=== PATIENT | male | born 1975 | race Two or more races ===

== ENCOUNTER 2019-12-08 16:40 | Emergency (ER) | payer SELFPAY ==
[~2019-12-08] VITALS: Ht 167.6 cm; Wt 93.0 kg
[~2019-12-08 16:40] MED LIST: CEPHALEXIN500 MG ORAL
[2019-12-08 16:47] VITALS: BP 119/83
--- NOTE | 2019-12-08 16:55 | NUR ---
ED Nurse Note: Patient walked in to ER for stitchies removal from forehead.
[2019-12-08 17:05] VITALS: BP 119/83
--- NOTE | 2019-12-08 17:07 | Emergency Room Report ---
History of Present Illness General Chief Complaint: Wound Recheck/Suture Removal Source: Patient Present Illness HPI 44-year-old male with no significant past medical history here requesting suture removal. Sutures were placed in 1 week ago at [email or web address]. Patient has avulsion laceration well. 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 Minimal Dermabond was applied. Patient to return in 4 to 5 days for removal of the sutures. Also need to take antibiotics. Patient denies any fever chills and pain is definitely at this time. Denies any fatigue, memory loss, generalized weakness. Denies blurry vision. Allergies: Coded Allergies: No Known Allergies (Unverified , 12/01/19) COVID-19 Screening Contact w/high risk pt: No Experienced COVID-19 symptoms?: No COVID-19 Testing performed WATER RESOURCE AGENT: No Patient History Past Medical History: see triage record Past Surgical History: none Pertinent Family History: none Immunizations: UTD Reviewed Nursing Documentation: PMH: Agreed; PSxH: Agreed Nursing Documentation-PMH Past Medical History: No Stated History Review of Systems All Other Systems: negative except mentioned in HPI Physical Exam Vital Signs Date Time Temp Pulse Resp B/P (MAP) Pulse Ox O2 Delivery O2 Flow Rate FiO2 12/08/19 16:47 97.3 82 17 119/83 (95) 99 Room Air Sp02 EP Interpretation: reviewed, normal General Appearance: well appearing, no apparent distress Head: normocephalic, other - Healing laceration on forehead ENT: hearing grossly normal, normal voice Neck: full range of motion, supple Respiratory: no respiratory distress, speaking full sentences Cardiovascular #1: regular rate, rhythm, no edema Gastrointestinal: normal inspection, non tender Musculoskeletal: gait/station normal, swelling Neurologic: alert, oriented, oriented x3 Psychiatric: normal inspection, judgement/insight normal, mood/affect normal Skin: laceration - Healing laceration of forehead Lymphatic: no adenopathy Medical Decision Making PA Attestation All diagnosis and treatment plans were discussed and reviewed by my supervising physician Dr. Henry Diagnostic Impression: Primary Impression: Encounter for re-check of laceration wound ER Course 44-year-old male with no significant past medical history here requesting suture removal. Sutures were placed in 1 week ago at [email or web address]. Patient has avulsion laceration well. 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 Minimal Dermabond was applied. Patient to return in 4 to 5 days for removal of the sutures. Also need to take antibiotics. Patient denies any fever chills and pain is definitely at this time. Denies any fatigue, memory loss, generalized weakness. Denies blurry vision. Ddx considered but are not limited to : Superficial laceration, deep laceration , tendon involvement with laceration, laceration with foreign body Vital signs: are WNL, pt. is afebrile H&PE are most consistent with: Recheck of laceration ORDERS: Bactrim DS, mupirocin ointment ED INTERVENTIONS: Dermabond, wound clean DISCHARGE: At this time pt. is stable for d/c to home. Will provide printed patient care instructions, and any necessary prescriptions. Care plan and follow up instructions have been discussed with the patient prior to discharge. Patient take medication as directed, follow-up primary care provider, return in 4 to 5 days if it is not too soon to remove the sutures. If worsening symptoms return to the emergency room sooner Last Vital Signs Date Time Temp Pulse Resp B/P (MAP) Pulse Ox O2 Delivery O2 Flow Rate FiO2 12/08/19 16:47 97.3 82 17 119/83 (95) 99 Room Air Disposition: HOME, SELF-CARE Condition: Stable Scripts Mupirocin* (MUPIROCIN*) 22 Gm Oint...g. 1 APPLIC TOPIC THREE TIMES A DAY, #22 GM Prov: Ozzy Troy 12/08/19 Trimethoprim/Sulfamethoxazole 160/800* (BACTRIM DS TABLET*) 1 Each Tablet 1 TAB ORAL TWICE A DAY for 7 Days, #14 TAB Prov: Ozzy Troy 12/08/19 Patient Instructions: Wound Check Additional Instructions: It is too early for the sutures to be removed. return in 5 days start taking a new antibiotic, if worsening symptom return to the emergency room Ozzy Troy Dec 08, 2019 17:07
[2019-12-08] MEDS ORDERED: MUPIROCIN22 GM TOPIC (17:08)
[2019-12-08] MEDS ORDERED: BACTRIM DS TAB1 EAC1 ORAL (17:08)
--- NOTE | 2019-12-08 17:12 | NUR ---
ED Nurse Note: Pt cleared by health care Provider for discharge. DC instructions/prescription was given and explained to pt and verbalized understanding of teachings. All medical deviecs such as ID band removed. Pt is AAO x4, ambulatory and left with all personal belongings.
== END 2019-12-08 17:12 | disposition home or self-care (01) ==
LOC: EMR 17:00
DX: S01.81XA Laceration without foreign body of other part of head, initial encounter (principal); X58.XXXA Exposure to other specified factors, initial encounter; Y92.9 Unspecified place or not applicable
CPT/HCPCS: 99281

== ENCOUNTER 2019-12-13 13:10 | Emergency (ER) | payer SELFPAY ==
[~2019-12-13] VITALS: Ht 165.1 cm; Wt 97.5 kg
[~2019-12-13 13:10] MED LIST changes: +BACTRIM DS TAB1 EAC1 ORAL; +MUPIROCIN22 GM TOPIC
[2019-12-13 13:20] VITALS: BP 132/91
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
[2019-12-13 13:38] VITALS: BP 132/91
== END 2019-12-13 13:35 | disposition home or self-care (01) ==
LOC: EMR 13:29
DX: Z48.02 Encounter for removal of sutures (principal); S01.81XD Laceration without foreign body of other part of head, subsequent encounter; V49.9XXD Car occupant (driver) (passenger) injured in unspecified traffic accident, subsequent encounter
CPT/HCPCS: 99281